=== PATIENT | male | born 1945 | race Caucasian/White ===

== ENCOUNTER 2021-10-08 22:02 | Emergency (ER) | payer OTHER ==
[2021-10-08 22:49] LABS: Absolute Lymphocytes (CBC) 3.3 K/uL (0.7-4.9); Hematocrit 46.3 % (39.6-49.0); Lymphocytes % 40.8 % (15.3-44.8); MPV 7.9 fL (7.6-11.3); RBC Red Blood Cell Count 4.86 M/uL (4.33-5.43)
[2021-10-08 22:53] LABS: Protime INR 1.9
[2021-10-09 00:15] LABS: Troponin High Sensitivity 6.9 pg/mL (<58.9)
--- NOTE | 2021-10-09 00:44 | EDPHYS ---
Physician Documentation [facility] Name: Charles Bowen Jr Age: 76 yrs Sex: Male : 1945 Arrival Date: 10/08/2021 Time: 22:08 Bed 2 Private MD: ED Physician Jay Jay Dai HPI: 10/08 22:23 This 76 yrs old Male presents to ER via Wheelchair with unknown complaint. sp3 22:23 76-year-old male with a history of atrial fibrillation currently on Xarelto, sp3 hypercholesterolemia presents with focal neurodeficit reported by his starting at approximately 4 PM and ending at 7 PM. Patient is a retired orthopedic surgeon. His communicates that he had confusion including forgetting dinner reservations, forgetting short-term events like his son calling, and confusion about time place for which she was concerned about and therefore presents to the ED today. All symptoms are currently resolved and she states that his mental status is back to his baseline. Patient also reports feeling fine and does not recall all of the events that occurred but currently feels "normal". On ROS, he reports no headache, neck pain, chest pain, shortness of breath abdominal pain, nausea, vomiting, diarrhea, numbness or tingling, weakness, double vision, speech problems, dysarthria, or any other symptoms at this time.. Historical: - Allergies: 22:14 No Known Allergies; as6 - Home Meds: 22:14 bisacodyl 5 mg Oral tab 2 tabs once daily [Active]; Xarelto 20 mg oral tab 1 tab once as6 daily [Active]; simvastatin 40 mg Oral tab 1 tab once daily [Active]; - PMHx: 22:14 Atrial fibrillation; Hypercholesterolemia; as6 - PSHx: 22:14 None; as6 - Immunization history:: Adult Immunizations up to date. - Social history:: Smoking status: Patient denies any tobacco usage or history of. Patient uses alcohol, occasionally. ROS: 22:26 Constitutional: Negative for fever, chills, and weight loss, Eyes: Negative for injury, sp3 pain, redness, and discharge, ENT: Negative for injury, pain, and discharge, Neck: Negative for injury, pain, and swelling, Cardiovascular: Negative for chest pain, palpitations, and edema, Respiratory: Negative for shortness of breath, cough, wheezing, and pleuritic chest pain, Abdomen/GI: Negative for abdominal pain, nausea, vomiting, diarrhea, and constipation, Back: Negative for injury and pain, MS/Extremity: Negative for injury and deformity, Skin: Negative for injury, rash, and discoloration, Psych: Negative for depression, anxiety, suicide ideation, homicidal ideation, and hallucinations, Allergy/Immunology: Negative for hives, rash, and allergies, Endocrine: Negative for neck swelling, polydipsia, polyuria, polyphagia, and marked weight changes. 22:26 All other systems are negative. Exam: 22:28 Constitutional: This is a well developed, well nourished patient who is awake, alert, sp3 and in no acute distress. Head/Face: Normocephalic, atraumatic. Eyes: Pupils equal round and reactive to light, extra-ocular motions intact. Lids and lashes normal. Conjunctiva and sclera are non-icteric and not injected. Cornea within normal limits. Periorbital areas with no swelling, redness, or edema. ENT: Nares patent. No nasal discharge, no septal abnormalities noted. External auditory canals are clear. Oropharynx with no redness, swelling, or masses, exudates, or evidence of obstruction, uvula midline. Mucous membranes moist. Neck: Trachea midline, no thyromegaly or masses palpated, and no cervical lymphadenopathy. Supple, full range of motion without nuchal rigidity, or vertebral point tenderness. No Meningismus. Chest/axilla: Normal chest wall appearance and motion. Nontender with no deformity. No lesions are appreciated. Cardiovascular: Regular rate and rhythm with a normal S1 and S2. No gallops, murmurs, or rubs. Normal PMI, no JVD. No pulse deficits. Respiratory: Lungs have equal breath sounds bilaterally, clear to auscultation and percussion. No rales, rhonchi or wheezes noted. No increased work of breathing, no retractions or nasal flaring. Abdomen/GI: Soft, non-tender, with normal bowel sounds. No distension or tympany. No guarding or rebound. No evidence of tenderness throughout. MS/ Extremity: Pulses equal, no cyanosis. Neurovascular intact. Full, normal range of motion. Neuro: Awake and alert, GCS 15, oriented to person, place, time, and situation. Cranial nerves II-XII grossly intact. Motor strength 5/5 in all extremities. Sensory grossly intact. Cerebellar exam normal. Normal gait. Psych: Awake, alert, with orientation to person, place and time. Behavior, mood, and affect are within normal limits. 22:56 ECG was reviewed by the Attending Physician. EKG demonstrates atrial fibrillation at 80 sp3 bpm with normal QRS, normal axis, nonspecific diffuse ST/T changes without evidence of ischemia. Vital Signs: 22:11 BP 157 / 106; Pulse 96; Resp 13 S; Temp 98.2(O); Pulse Ox 98% on R/A; Weight 90.26 kg as6 (R); Height 5 ft. 8 in. (172.72 cm) (R); Pain 0/10; 23:00 BP 139 / 94; Pulse 92; Resp 17 S; Pulse Ox 98% on R/A; as6 10/09 00:00 BP 136 / 91; Pulse 85; Resp 15 S; Pulse Ox 97% on R/A; as6 00:46 BP 133 / 97; Pulse 85; Resp 17 S; Pulse Ox 98% on R/A; as6 10/08 22:11 Body Mass Index 30.26 (90.26 kg, 172.72 cm) as6 NIH Stroke Scale Scores: 10/08 22:37 NIHSS Score: 0 as6 MDM: 22:15 Patient medically screened. sp3 22:28 Data reviewed: vital signs, nurses notes. ED course: 76-year-old male with a recovered sp3 focal neurodeficit of confusion. No reports of dysarthria, speech disturbance or other motor or sensory deficits noted. Currently patient has a normal neurological exam including mental status. We will obtain a CT scan of the head, laboratory values and EKG. Patient is chronically in A. fib and is not missed any doses of his Xarelto. I will leave it up to the patient to determine whether to be admitted for overnight observation and MRI versus outpatient follow-up. Disposition TBD based on data and patient course.. 22:56 ED course: Discussed with radiologist who states that the CT scan of the head is sp3 normal. This has been communicated with the patient remains to have a normal neurological exam. Remainder of work-up pending.. 10/09 00:42 ED course: Troponin is negative. Also discussed the case with patient's daughter. sp3 Patient elects to be discharged and follow-up outpatient with Dr. Lee for continued work-up and MRI. Will discharge patient at this time. Discharge neurological exam remains completely normal.. 10/08 22:15 Order name: Basic Metabolic Panel; Complete Time: 00:41 sp3 10/08 22:15 Order name: CBC with Diff; Complete Time: 23:36 sp3 10/08 22:15 Order name: Protime (+inr); Complete Time: 23:36 3 10/08 22:15 Order name: Ptt, Activated; Complete Time: 23:36 3 10/08 22:47 Order name: Glucose, Ancillary Testing; Complete Time: 23:36 EDMS 10/08 23:36 Order name: Troponin High Sensitivity 3 10/08 22:15 Order name: CT Stroke Brain w/o Contrast 3 10/08 22:15 Order name: Stroke CXR 1 View 3 10/08 22:15 Order name: EKG; Complete Time: 22:16 3 10/08 22:15 Order name: Accucheck; Complete Time: 22:45 3 10/08 22:15 Order name: Cardiac monitoring; Complete Time: 22:45 3 10/08 22:15 Order name: EKG - Nurse/Tech; Complete Time: 22:55 3 10/08 23:44 Order name: Troponin High Sensitivity; Complete Time: 00:41 EDMS 10/08 22:15 Order name: IV Saline Lock; Complete Time: 22:45 3 10/08 22:15 Order name: Labs collected and sent; Complete Time: 22:45 3 10/08 22:15 Order name: NPO; Complete Time: 22:45 sp3 10/08 22:15 Order name: O2 Per Protocol; Complete Time: 22:45 3 10/08 22:15 Order name: O2 Sat Monitoring; Complete Time: 22:45 3 10/08 22:15 Order name: Stroke Swallow Screen; Complete Time: 22:45 sp3 Administered Medications: No medications were administered Disposition Summary: 10/09/21 00:43 Discharge Ordered Location: Home sp3 Condition: Stable sp3 Diagnosis - Transient cerebral ischemic attack, unspecified sp3 Followup: sp3 - With: Cristian Lee MD - When: Upon discharge from the Emergency Department - Reason: Further diagnostic work-up Discharge Instructions: - Discharge Summary Sheet sp3 - Stroke Prevention sp3 - Transient Ischemic Attack sp3 Forms: - Medication Reconciliation Form sp3 - Thank You Letter sp3 - Antibiotic Education sp3 - Prescription Opioid Use sp3 NIH Stroke Scale - NIH Stroke Score Date: 10/08/2021 Time: 22:37 Total Score = 0 1a. Level of Consciousness (LOC) - 0(Alert) 1b. Level of Consciousness (LOC) (Month \\T\\ Age) - 0(Both) 1c. LOC Commands (Open \\T\\ Closes Eyes/Pig Iron Loader) - 0(Both) 2. Best Gaze (Lateral Gaze Paresis) - 0(Normal) 3. Visual Field Loss - 0(No visual loss) 4. Facial Palsy - 0(Normal) 5a. Left Arm: Motor (10-second hold) - 0(No drift) 5b. Right Arm: Motor (10-second hold) - 0(No drift) 6a. Left Leg: Motor (5-second hold - always test supine) - 0(No drift) 6b. Right Leg: Motor (5-second hold - always test supine) - 0(No drift) 7. Limb Ataxia (finger/nose \\T\\ heel/talley - test with eyes open) - 0(Absent) 8. Sensory Loss (pinprick arms/legs/face) - 0(Normal) 9. Best Language: Aphasia (description/naming/reading) - 0(No aphasia) 10. Dysarthria (speech clarity - read or repeat words) - 0(Normal) 11. Extinction and Inattention (visual/tactile/auditory/spatial/personal) - 0(No abnormality) Initials: as6 Signatures: Dispatcher [employer] EDMS Jay Jay Dai MD MD sp3 Isauro Tamez RN RN as6 Corrections: (The following items were deleted from the chart) 10/08 23:44 23:37 Troponin High Sensitivity ordered. EDMS EDMS
--- NOTE | 2021-10-09 00:44 | ER ---
Nurse's Notes [facility] Name: Charles Bowen Jr Age: 76 yrs Sex: Male : 1945 Arrival Date: 10/08/2021 Time: 22:08 Bed 2 Private MD: Diagnosis: Transient cerebral ischemic attack, unspecified Presentation: 10/08 22:11 Chief complaint: Spouse and/or significant other states: around 1600 noticed pt was as6 having short term memory loss, denies weakness to one side or facial droop. Coronavirus screen: Vaccine status: Patient reports receiving the 2nd dose of the covid vaccine. mederna At this time, the client does not indicate any symptoms associated with coronavirus-19. Ebola Screen: No symptoms or risks identified at this time. Initial Sepsis Screen: Does the patient meet any 2 criteria? No. Patient's initial sepsis screen is negative. Does the patient have a suspected source of infection? No. Patient's initial sepsis screen is negative. Risk Assessment: Do you want to hurt yourself or someone else? Patient reports no desire to harm self or others. Onset of symptoms was October 08, 2021. 22:11 Method Of Arrival: Wheelchair as6 22:11 Acuity: MADALYN 3 as6 Historical: - Allergies: 22:14 No Known Allergies; as6 - Home Meds: 22:14 bisacodyl 5 mg Oral tab 2 tabs once daily [Active]; Xarelto 20 mg oral tab 1 tab once as6 daily [Active]; simvastatin 40 mg Oral tab 1 tab once daily [Active]; - PMHx: 22:14 Atrial fibrillation; Hypercholesterolemia; as6 - PSHx: 22:14 None; as6 - Immunization history:: Adult Immunizations up to date. - Social history:: Smoking status: Patient denies any tobacco usage or history of. Patient uses alcohol, occasionally. Screenin:43 The patient has not been NPO before screening. The patient is currently on the as6 following diet: regular The patient is alert, able to follow commands. The patient does not exhibit slurred or garbled speech The patient is not exhibiting difficulty speaking. The patient does not exhibit difficulty understanding words. The patient is able to swallow own secretions with no drooling or need for suction. Patient tolerated one teaspoon of water. No drooling, immediate coughing, gurgling, or clearing of the throat was noted. The patient tolerated 90mL of water. No drooling, immediate coughing, gurgling, or clearing of the throat was noted. The patient passed the bedside swallow screening. Oral medications may be given as ordered. Contact Physician for further diet orders. Provider notified of bedside swallow screening results: Jay Jay Dai MD. 10/09 00:43 Abuse screen: Denies threats or abuse. Denies injuries from another. Nutritional as6 screening: No deficits noted. Tuberculosis screening: No symptoms or risk factors identified. Fall Risk None identified. Assessment: 10/08 22:15 General: Appears in no apparent distress. Behavior is calm, cooperative. Pain: Denies as6 pain. Neuro: Level of Consciousness is awake, alert, obeys commands, Oriented to person, place, time, situation, spouse report pt was confused with short term memory loss check out clerk . Cardiovascular: Capillary refill < 3 seconds Patient's skin is warm and dry. Rhythm is atrial fibrillation. Respiratory: Airway is patent Trachea midline Respiratory effort is even, unlabored, Respiratory pattern is regular, symmetrical. Derm: Skin is intact, is healthy with good turgor. Vital Signs: 22:11 BP 157 / 106; Pulse 96; Resp 13 S; Temp 98.2(O); Pulse Ox 98% on R/A; Weight 90.26 kg as6 (R); Height 5 ft. 8 in. (172.72 cm) (R); Pain 0/10; 23:00 BP 139 / 94; Pulse 92; Resp 17 S; Pulse Ox 98% on R/A; as6 10/09 00:00 BP 136 / 91; Pulse 85; Resp 15 S; Pulse Ox 97% on R/A; as6 00:46 BP 133 / 97; Pulse 85; Resp 17 S; Pulse Ox 98% on R/A; as6 10/08 22:11 Body Mass Index 30.26 (90.26 kg, 172.72 cm) as6 NIH Stroke Scale Scores: 10/08 22:37 NIHSS Score: 0 as6 ED Course: 22:08 Patient arrived in ED. as6 22:08 Isauro Tamez, ADEEL is Primary Nurse. as6 22:08 Jay Jay Dai MD is Attending Physician. sp3 22:14 Triage completed. as6 22:22 Arm band placed on. as6 22:30 CT Stroke Brain w/o Contrast In Process Unspecified. EDMS 22:38 Inserted saline lock: 20 gauge in right antecubital area, using aseptic technique. as6 Blood collected. 22:48 Stroke CXR 1 View In Process Unspecified. EDMS 0112 00:43 Cristian Lee MD is Referral Physician. sp3 00:43 Placed in gown. Bed in low position. Call light in reach. Side rails up X2. Adult w/ as6 patient. sales project coordinator on. Pulse ox on. NIBP on. Door closed. Warm blanket given. 00:59 No provider procedures requiring assistance completed. IV discontinued, intact, as6 bleeding controlled, No redness/swelling at site. Pressure dressing applied. Administered Medications: No medications were administered Outcome: 00:43 Discharge ordered by . sp3 00:59 Discharged to home ambulatory, with family. as6 00:59 Condition: stable 00:59 Discharge instructions given to patient, family, Instructed on discharge instructions, follow up and referral plans. Demonstrated understanding of instructions, follow-up care. 00:59 Patient left the ED. as6 NIH Stroke Scale - NIH Stroke Score Date: 10/08/2021 Time: 22:37 Total Score = 0 1a. Level of Consciousness (LOC) - 0(Alert) 1b. Level of Consciousness (LOC) (Month \T\ Age) - 0(Both) 1c. LOC Commands (Open \T\ Closes Eyes/Stone Belt Sander) - 0(Both) 2. Best Gaze (Lateral Gaze Paresis) - 0(Normal) 3. Visual Field Loss - 0(No visual loss) 4. Facial Palsy - 0(Normal) 5a. Left Arm: Motor (10-second hold) - 0(No drift) 5b. Right Arm: Motor (10-second hold) - 0(No drift) 6a. Left Leg: Motor (5-second hold - always test supine) - 0(No drift) 6b. Right Leg: Motor (5-second hold - always test supine) - 0(No drift) 7. Limb Ataxia (finger/nose \T\ heel/talley - test with eyes open) - 0(Absent) 8. Sensory Loss (pinprick arms/legs/face) - 0(Normal) 9. Best Language: Aphasia (description/naming/reading) - 0(No aphasia) 10. Dysarthria (speech clarity - read or repeat words) - 0(Normal) 11. Extinction and Inattention (visual/tactile/auditory/spatial/personal) - 0(No abnormality) Initials: as6 Signatures: Dispatcher [employer] Jay Jay Adame MD MD sp3 Isauro Tamez RN RN as6
[2021-10-09 01:45] VITALS: TEMP 98.2
[2021-10-09 01:49] VITALS: BP 133/97; O2SAT 98
--- NOTE | 2021-10-09 07:46 | EKG ---
Test Date: 2021-10-08 Test Time: 22:51:34 Band Ripsaw Operator: MEASUREMENT RESULTS: Intervals: Rate: 80 [place]: QRSD: 100 QT: 374 QTc: 431 [place]: P: [place]: QRS: 56 T: 54 INTERPRETIVE STATEMENTS: Atrial fibrillation Abnormal ECG Compared to ECG 10/13/2012 11:13:18 No significant changes Electronically Signed On 10-09-21 07:45:34 DIRECTOR OF ENROLLMENT by Abundio Mcmillan
--- NOTE | 2021-10-09 08:40 | RAD REPORT ---
EXAM DESCRIPTION: RAD - Chest Single View - 10/08/2021 10:47 pm CLINICAL HISTORY: suspect stroke, Stroke protocol chest film COMPARISON: May 2014 Two view chest TECHNIQUE: AP portable chest image was obtained 10/08/2021 10:47 pm . FINDINGS: Lung volumes are low. Patient is in lordotic positioning. No dense mass or consolidation. No significant failure or volume overload findings. Heart, vasculatur e and lung markings are all accentuated due to the above detailed exam limitations. Right lung base i s slightly more prominent and can be monitored for possible infiltrate. No measurable pleural effusion and no pneumothorax. No acute bony abnormality seen. No acute aortic f indings suspected. IMPRESSION: Heart, vasculature and lung markings are all accentuated by shallow inspiration portable exam. Right base markings are slightly increased relative to the left and patient can be monitored for poss ible infiltrate development.
--- NOTE | 2021-10-09 10:53 | RAD REPORT ---
EXAM DESCRIPTION: CT - Ct Stroke Brain Wo Cont - 10/09/2021 5:59 am ADDENDUM #1 I directly communicated these findings to Dr. Jay Jay Dai at 2245 hours on 10/08/2021. Electronically signed by: aJcinta Hare DO 10/08/2021 10:47 PM CABLE TELEVISION TECHNICIAN End of Addendum CT HEAD WITHOUT CONTRAST CLINICAL HISTORY: MENTAL STATUS CHANGE COMPARISON: None. TECHNIQUE: Axial unenhanced CT imaging of the brain. Reformatted coronal and sagittal images obtaine d. This examination was performed according to our departmental dose optimization program, which include s automated exposure control, adjustment of the mA and/or kV according to patient size and/or use of iterative reconstruction technique. FINDINGS: Moderate generalized age-related cortical volume loss. There is no intraparenchymal or ext ra-axial hemorrhage. No mass or midline shift. No evidence of acute large territorial infarction, tanmay ma, or hyperdense vessel. There is an enlarged cisterna magna. Cerebellar hemispheres and vermis appe ar normal. No cerebellar tonsillar ectopia. Normal sella contents. Normal appearance of intraorbital contents. Clear paranasal sinuses. Mastoid air cells are clear bila terally. Intact calvarium. Normal scalp soft tissues. IMPRESSION: Moderate senescent brain changes. No intracranial acute finding. Electronically signed by: Jacinta Hare DO 10/08/2021 10:40 PM CABLE TELEVISION TECHNICIAN Due to temporary technical issues with the PACS/Fluency reporting system, reports are being signed by the in house radiologist without review as a courtesy to ensure prompt reporting. The interpreting r adiologist is fully responsible for the content of the report.
== END 2021-10-09 00:59 | disposition home or self-care (01) ==
LOC: ER 22:02
DX: G45.9 Transient cerebral ischemic attack, unspecified (principal); I48.91 Unspecified atrial fibrillation; E78.00 Pure hypercholesterolemia, unspecified; Z79.01 Long term (current) use of anticoagulants
CPT/HCPCS: 36415; 70450; 71045; 80048; 82947; 84484; 85025; 85610; 85730; 93005; 99284